=== PATIENT | male | born 1990 | race Caucasian/White ===

== ENCOUNTER → 2021-04-04 | Day surgery (SDC) | payer OTHER ==
[~2021-04-04] VITALS: Ht 185.4 cm; Wt 82.6 kg
[~2021-04-04] MED LIST: MAGNESIUM PO; MULTI-VITAMIN1 EACH PO; POTASSIUM PO; VITAMIN D325 MCG PO
[2021-04-04 08:34] LABS: HEMOGLOBIN 12.2 gm/dl (14.0-17.5); RED BLOOD COUNT 3.95 M/UL (4.20-5.50)
[2021-04-04 09:18] LABS: BUN/CREATININE RATIO 11 (0-10)
== END | disposition home or self-care (01) ==
LOC: OR 07:00
PROVIDERS: Orthopaedic Surgery
DX: S42.031A Displaced fracture of lateral end of right clavicle, initial encounter for closed fracture (principal); Z83.3 Family history of diabetes mellitus; Z82.61 Family history of arthritis; Z88.0 Allergy status to penicillin; Z79.899 Other long term (current) drug therapy; Z20.822 Contact with and (suspected) exposure to COVID-19; Y93.61 Activity, american tackle football
CPT/HCPCS: 36415; 73000; 76000; 80048; 85025; C1713; J0690; J1100; J2001; J2250; J2405; J2704; J2710; J2795; J3010; J7120; U0002

== ENCOUNTER → 2021-10-17 | Day surgery (SDC) | payer OTHER ==
[~2021-10-17] VITALS: Ht 185.4 cm; Wt 85.3 kg
[~2021-10-17] MED LIST changes: +TRAMADOL HCL50 MG PO
[2021-10-17 07:18] LABS: BUN/CREATININE RATIO 20 (0-10)
== END | disposition home or self-care (01) ==
LOC: OR 05:29
PROVIDERS: Orthopaedic Surgery
DX: Z47.2 Encounter for removal of internal fixation device (principal); Z88.0 Allergy status to penicillin; Z20.822 Contact with and (suspected) exposure to COVID-19
CPT/HCPCS: 36415; 80048; J0690; J1100; J1885; J2001; J2250; J2405; J2704; J2710; J3010; J7120